=== PATIENT | female | born 1960 | race Caucasian/White ===

== ENCOUNTER 2022-08-23 00:32 | Day surgery (SDC) | payer OTHER, SELFPAY ==
[2022-08-13 11:54] VITALS: BMI 34.4
--- NOTE | 2022-08-13 12:00 | PC.NURSE ---
Report to the Outpatient Waiting Room, entrance under the green pavilion located off [facility], at time 6:00 on date 08/23/22. Planned Procedure Time: 7:30. Time changes happen often and if your time is changed the preop area will call you the afternoon before. - You and your visitor will be asked to self-screen and do not enter if you have any COVID symptoms. - Only one visitor is requested with a max of two and NO children visitors are allowed at this time. - The patient visitor may be requested to leave or wait in car when not with patient due to distancing restrictions. - A mask is REQUIRED within the hospital. Patients may have clear liquids (water, carbonated beverages, clear teas, apple juice) until 3 hours prior to surgery (4:30) with a maximum of 20 ounces. - No food from midnight until time of surgery Take the following medications with a SIP of water the morning of surgery: NONE Medications to discontinue per physician: N/A Date to take last dose: N/A Please no make-up, nail japanese, hairspray, perfume, deodorant, or body powder the day of surgery. No jewelry (including any body piercings) or valuables the day of surgery, leave them at home. Please take a shower or bath the night before, or the morning of, surgery with an antibacterial soap. Wear comfortable, loose fitting clothing. - Jewelry must be removed prior to entering the operating room. Rings and piercings that are not removed may be cut off. - The hospital will not accept responsibility for valuables. - Please leave all valuables, including medications, at home the day of surgery. If you are going home after surgery, a licensed solo truck driver must drive you home. - NO public transportation without another adult if you receive anesthesia. - We recommend that an adult stay with you for 24 hours following discharge. - We also recommend that you do not drive, make important decision, drink alcoholic beverages, or take any drugs that were not prescribed by your health care provider for at least 24 hours after your discharge time. Follow any additional instructions given to you from your surgeon. If you or anyone in your household have experienced Covid symptoms in the past week, please notify your surgeon or the nurse liaison at the phone number below for possible testing. Telephone instructions given to PT - ANNA RUIZ and asked if any additional questions and then verbalized understanding. Patient advised to call surgeon office or pre surgery nurse liaison [phone] if any additional questions.
[2022-08-23] MEDS: LACTATED RINGERS 1,000 ML 30 ML IV CONT ×2 (06:45→08:00)
[2022-08-23 06:50] VITALS: BP 156/88; PULSE 67; RESP 18; TEMP 36.6; O2SAT 98
--- NOTE | 2022-08-23 07:08 | WPDANESEPPF ---
Anes - Initial Pre Proc Eval Procedure: Operation Date: 08/23/22 07:30 Proposed Procedures p Excision Neoplasm Unspecified Behavior Right [place], Excision Basal Cell Carcinoma Top of Head with Frozen Section, Possible Local Tissue Transfer or Full Thickness Skin Graft - Antonio Glasgow MD Date/Time: 08/23/22 07:08 Surgeon: Antonio Glasgow MD Pre Op Diagnosis: neopl unspec behavior right helix,BCCA top of head Patient Data Age: 62 Gender: F Height: 1.56 m Weight: 85.8 kg Last Vital Signs Temp 36.6 C 08/23/22 06:50 Pulse 67 08/23/22 06:50 Resp 18 08/23/22 06:50 BP 156/88 H 08/23/22 06:50 Pulse Ox 98 08/23/22 06:50 O2 Del Method Room Air 08/23/22 06:50 Allergies Allergy/AdvReac Type Severity Reaction Status Date / Time No Known Allergies Allergy Verified 08/23/22 06:10 Home Medications Medication Instructions Recorded Confirmed Type losartan 100 1 tablet PO DAILY 08/13/22 08/23/22 History mg-hydrochlorothiazide 12.5 mg tablet omeprazole 20 mg tablet,delayed 20 mg PO DAILY 08/13/22 08/23/22 History release Patient hx anesthesia problems: none Family hx anesthesia problems: none Results Review: All pre-operative results and documents have been reviewed as part of the pre-operative evaluation. [facility] Social History Social History Smoking status: Never smoker Alcohol intake: current Drinks per week: 2 Substance use: never Substance use type: does not use Living arrangements: with family Spiritual care concerns: No Anes - Eval Final PreProcedure Day of Procedure 08/23/22 07:08 Patient weight: obese Heart: regular rate and rhythm Lungs: clear to auscultation Airway: Mallampati scale class II Neurological: alert and oriented Last oral intake: >/= 8 hours ASA classification: II Emergent: no Anesthetic plan: proceed Anesthesia type and monitoring: general GIVS and standard monitoring Results Review: All pre-operative results and documents have been reviewed as part of the pre-operative evaluation. Informed Consent: The patient's anesthetic plan and its attendant risks and benefits were discussed with the patient/family/POA. Questions were solicited and answers provided to the satisfaction of the patient/family/POA.
--- NOTE | 2022-08-23 07:13 | WPDHPUPDATE1 ---
History and Physical Update Update Date/Time: 08/23/22 07:13 History and Physical has been reviewed, including an updated exam of the patient. There are NO changes in the patient's condition. Risks, benefits, and alternatives have been discussed and questions answered. Patient agrees to proceed with procedure.
--- NOTE | 2022-08-23 08:21 | SUR.OPER ---
Incision- 0717 Excision- 0751 Out of Room- 0758 Pathologist Report- [id number]
[2022-08-23] MEDS: BACITRACIN OINTMENT 15 GM TUBE 1 APPLIC TOPICAL (08:26)
[2022-08-23 08:39] VITALS: BP 114/66; PULSE 97; RESP 16; O2SAT 93
--- NOTE | 2022-08-23 09:01 | P.OP_ITS ---
Procedure Note - Detailed Date of Procedure 08/23/22 Pre-op Diagnosis neopl unspec behavior right helix,BCCA top of head Post-op Diagnosis Same Procedure Performed 2 cm excision of basal cell carcinoma of top of the head with frozen section and intermediate repair 2.4 cm. 1.5 cm excision of neoplasm unspecified behavior of the right helix 2 cm simple repair. Surgeon Antonio Glasgow MD [employer] [facility] Description of Procedure The site on top the right ear and on the left top of head were marked with the patient's consent. She was taken to the operating room where she was placed supine on the operating table. She was given IV sedation and LMA. The 2 sites were prepped and draped in usual fashion and both were infiltrated with 1% lidocaine with epinephrine. Adequate anesthesia was obtained. The lesion from top of the head was taken 1st as a full-thickness skin ellipse including the galea but sparing the periosteum. Specimen marked at its anterior aspect with a suture for 12 o'clock and sent for frozen section. Pathologist reported that this was indeed a basal cell carcinoma and margins were free. In the interim the lesion from the right upper helix was excised was sent for permanent section. The required no additional surgical preparation and the skin was closed with a running 5 0 nylon. Upon receipt of the pathology report, the scalp wound was closed with interrupted 2-0 nylon sutures. This was made feasible by incising galea along each side paralleling the axis of the closure. This allowed little tension on the sutures. Patient was transported then from operating room to recovery area in stable condition. She is being discharged home with instructions in wound care and follow-up. In order for hydrocodone 5/325 number 4 was sent to her pharmacy . Estimated Blood Loss 2 Drains No Packing No Pathology Yes Complications No immediate complications Condition Stable Disposition Same day
[2022-08-23 09:10] VITALS: BP 153/78; PULSE 80; RESP 16
[2022-08-23 09:25] VITALS: BP 134/66; PULSE 77; RESP 16
== END 2022-08-23 09:50 | disposition home or self-care (01) ==
PROVIDERS: PCP Family Medicine; Visit Provider Plastic Surgery
PROC: (CPT 11622; principal; 2022-08-23 07:30)
DX: C44.41 Basal cell carcinoma of skin of scalp and neck (principal); L82.1 Other seborrheic keratosis; E66.9 Obesity, unspecified; Z68.35 Body mass index [BMI] 35.0-35.9, adult
CPT/HCPCS: 11622; 12031; 11442; 88305; 88331; A9270; J2250; J2370; J2704; J3010; J7120

== ENCOUNTER → 2025-01-13 15:52 | Outpatient (REF) | payer BC, SELFPAY ==
--- NOTE | 2025-01-13 15:52 | S_PTH ---
PATIENT: Olga Nath LOC: [facility] #:[id number] AGE/SX: 65/F ROOM: RE01/13/[address]: Gabriela Joe MD : 1960 BED: DIS: SPEC #: [id number] RECD: 01/14/25 07:37 STATUS: SAMANTHA REYousif #: [id number] LAURIE: 01/13/25 15:[address]: Gabriela Joe DEPT: [facility] Surgical RECD BY: Hue Perez ENTERED: 01/14/25 07:41 SP TYPE: Surgical OTHR DR: PHYSICIAN NOT ON STAFF Tissues: A - Skin Procedures: Hematoxylin and Eosin Stain Gross and Microscopic Level 4
== END ==
LOC: ANHLAB 15:52
PROVIDERS: Visit Provider Plastic Surgery
DX: D22.71 Melanocytic nevi of right lower limb, including hip (principal)
CPT/HCPCS: 88305

== ENCOUNTER → 2025-06-07 15:30 | Outpatient (REF) | payer MEDICARE, SELFPAY ==
--- NOTE | 2025-06-07 15:30 | S_PTH ---
PATIENT: Olga Nath LOC: [facility] U#:[id number] AGE/SX: 65/F ROOM: RE06/07/[address]: Gabriela Joe MD : 1960 BED: DIS: SPEC #: [id number] RECD: 06/08/25 07:20 STATUS: SAMANTHA PACHECO #: [id number] LAURIE: 06/07/25 15:[address]: Gabriela Joe DEPT: [facility] Surgical RECD BY: Karissa Johnson ENTERED: 06/08/25 07:20 SP TYPE: Surgical OTHR DR: UNKNOWN,DOCTOR Tissues: A - LESION Procedures: Hematoxylin and Eosin Stain Gross and Microscopic Level 4
== END ==
LOC: ANHLAB 15:30
PROVIDERS: Visit Provider Plastic Surgery
DX: D48.5 Neoplasm of uncertain behavior of skin (principal)
CPT/HCPCS: 88305